=== PATIENT | female | born 1965 | race African-American/Black ===

== ENCOUNTER 2017-02-15 02:07 | Emergency (ER) | payer BC, OTHER ==
[~2017-02-15] VITALS: Ht 162.6 cm; Wt 70.3 kg
--- NOTE | ~2017-02-15 | EKG ---
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 : 1965 Requested By: Leon Wooten Order Number: [id number] MD: Rikki Grimes Measurements Intervals [place] Rate: 56 P: 24 VA: 147 QRS: 10 QRSD: 103 T: 16 QT: 442 QTc: 427 Interpretive Statements Sinus bradycardia Ventricular premature complex Borderline T abnormalities, anterior leads No previous ECG available for comparison Electronically Signed On 02-15-2017 8:34:24 RUBBER HEEL AND SOLE PRESS TENDER by Rikki Grimes [email or web address] <ELECTRONICALLY SIGNED> By: Rikki Grimes MD, [facility] 02/15/17 [id number] Rikki Grimes MD, FACC /EPI
[2017-02-15] MEDS ORDERED: LISINOPRIL10 MG PO (02:16)
[2017-02-15] MEDS ORDERED: AMBIEN 5 MG TABL5 M1 PO (02:16)
[2017-02-15 02:44] LABS: ABSOLUTE NEUTROPHILS 6.7 thou/uL (1.4-8.2); BASOPHILS 0.7 % (0.0-2.0); EOSINOPHILS 0.8 % (0.0-3.0); HEMATOCRIT 32.1 % (37.0-47.0); LYMPHOCYTES 23.9 % (24.0-44.0); MCH 27.8 pg (26.0-34.0); MCHC 34.2 g/dL (28.0-37.0); MCV 81.4 fL (80.0-100.0); MONOCYTES 6.2 % (1.0-8.0); PLATELET COUNT 261 thou/uL (150-400); POLYS 68.4 % (36.0-66.0); RBC 3.94 mil/uL (4.20-5.00); WBC 9.8 thou/uL (4.0-11.0)
[2017-02-15 02:53] LABS: ANION GAP 10 mmol/L (7-16); BUN 11 mg/dL (7-18); CALCIUM 9.9 mg/dL (8.5-10.1); CHLORIDE 102 mmol/L (98-107); CO2 28 mmol/L (21-32); CREATININE 0.6 mg/dL (0.6-1.0); GLUCOSE 122 mg/dL (74-106); POTASSIUM 3.2 mmol/L (3.5-5.1); SODIUM 140 mmol/L (136-145)
[2017-02-15 02:54] LABS: URINE BILIRUBIN NEGATIVE (Negative); URINE BLOOD TRACE (Negative); URINE CLARITY CLEAR; URINE COLOR YELLOW; URINE GLUCOSE-RANDOM* NEGATIVE (Negative); URINE KETONES NEGATIVE (Negative); URINE LEUKOCYTES-REFLEX TRACE (Negative); URINE NITRITE-REFLEX NEGATIVE (Negative); URINE PROTEIN (DIPSTICK) NEGATIVE (Negative); URINE SPECIFIC GRAVITY <= 1.005 (1.005-1.035); URINE UROBILINOGEN 0.2 E.U./dl (0.2-1.0)
[2017-02-15] MEDS ORDERED: VENTOLIN HFA 1818 GM INH (03:00)
[2017-02-15] MEDS ORDERED: PREDNISONE 20 M20 MG PO (03:00)
[2017-02-15] MEDS ORDERED: HYDROCODONE-AP1 EAC6 PO (03:00)
[2017-02-15] MEDS ORDERED: ZOFRAN ODT8 MG PO (03:00)
[2017-02-15 03:04] LABS: ALBUMIN 3.7 g/dL (3.4-5.0); LIPASE 62 U/L (73-393); SGOT 15 U/L (15-37); SGPT 21 U/L (30-65); TOTAL BILIRUBIN 0.5 mg/dL (<0.1-1.0); TOTAL PROTEIN 7.7 g/dL (6.4-8.2); TROPONIN-I < 0.04 ng/mL (<0.06)
[2017-02-15] MEDS ORDERED: CIPROFLOXACIN500 M1 PO (04:47)
[2017-02-15] MEDS ORDERED: FLAGYL500 MG PO (04:47)
== END 2017-02-15 07:11 | disposition home or self-care (01) ==
LOC: ER 02:07
PROVIDERS: Emergency Medicine
DX: K57.92 Diverticulitis of intestine, part unspecified, without perforation or abscess without bleeding (principal); E87.6 Hypokalemia; I10 Essential (primary) hypertension; Z90.710 Acquired absence of both cervix and uterus

== ENCOUNTER 2017-11-18 22:40 | Emergency (ER) | payer BC, OTHER ==
[~2017-11-18] VITALS: Ht 165.1 cm; Wt 67.6 kg
[~2017-11-18 22:40] MED LIST: AMBIEN 5 MG TABL5 M1 PO; CIPROFLOXACIN500 M1 PO; FLAGYL500 MG PO; HYDROCODONE-AP1 EAC6 PO; LISINOPRIL10 MG PO; PREDNISONE 20 M20 MG PO; VENTOLIN HFA 1818 GM INH; ZOFRAN ODT8 MG PO
[2017-11-18 23:43] LABS: ABSOLUTE NEUTROPHILS 2.6 thou/uL (1.4-8.2); BASOPHILS 0.6 % (0.0-2.0); EOSINOPHILS 1.8 % (0.0-3.0); HEMATOCRIT 34.8 % (37.0-47.0); HEMOGLOBIN 11.9 gm/dL (12.0-15.0); LYMPHOCYTES 32.9 % (24.0-44.0); MCHC 34.2 g/dL (28.0-37.0); MCV 84.8 fL (80.0-100.0); MONOCYTES 11.3 % (1.0-8.0); PLATELET COUNT 204 thou/uL (150-400); POLYS 53.4 % (36.0-66.0); RDW 13.1 % (10.5-14.5)
[2017-11-18 23:47] LABS: CALCIUM 9.3 mg/dL (8.5-10.1); CREATININE 0.5 mg/dL (0.6-1.0); POTASSIUM 4.1 mmol/L (3.5-5.1)
[2017-11-18 23:53] LABS: ALBUMIN 3.2 g/dL (3.4-5.0); TOTAL BILIRUBIN 0.4 mg/dL (<0.1-1.0); TOTAL PROTEIN 6.9 g/dL (6.4-8.2)
[2017-11-19] MEDS ORDERED: CIPROFLOXACIN500 M1 PO
[2017-11-19] MEDS ORDERED: FLAGYL500 MG PO
[2017-11-19] MEDS ORDERED: NORCO 5-325 TA1 EACH PO
[2017-11-19 00:36] LABS: URINE BILIRUBIN NEGATIVE (Negative); URINE BLOOD NEGATIVE (Negative); URINE CLARITY CLEAR; URINE COLOR YELLOW; URINE GLUCOSE-RANDOM* NEGATIVE (Negative); URINE KETONES NEGATIVE (Negative); URINE LEUKOCYTES-REFLEX NEGATIVE (Negative); URINE NITRITE-REFLEX NEGATIVE (Negative); URINE PROTEIN (DIPSTICK) NEGATIVE (Negative); URINE UROBILINOGEN 0.2 E.U./dl (0.2-1.0)
[2017-11-19 02:36] VITALS: BP 109/67
== END 2017-11-19 02:31 | disposition home or self-care (01) ==
LOC: ER 22:40
PROVIDERS: Emergency Medicine
DX: K57.92 Diverticulitis of intestine, part unspecified, without perforation or abscess without bleeding (principal); I10 Essential (primary) hypertension; Z90.711 Acquired absence of uterus with remaining cervical stump

== ENCOUNTER 2018-03-09 20:06 | Emergency (ER) | payer BC, OTHER ==
[~2018-03-09] VITALS: Ht 167.6 cm; Wt 71.7 kg
[~2018-03-09 20:06] MED LIST changes: +NORCO 5-325 TA1 EACH PO
[2018-03-09 20:39] LABS: URINE BILIRUBIN NEGATIVE (Negative); URINE BLOOD TRACE (Negative); URINE CLARITY CLEAR; URINE COLOR YELLOW; URINE GLUCOSE-RANDOM* NEGATIVE (Negative); URINE KETONES NEGATIVE (Negative); URINE LEUKOCYTES-REFLEX NEGATIVE (Negative); URINE NITRITE-REFLEX NEGATIVE (Negative); URINE PROTEIN (DIPSTICK) NEGATIVE (Negative); URINE SPECIFIC GRAVITY <= 1.005 (1.005-1.035); URINE UROBILINOGEN 0.2 E.U./dl (0.2-1.0)
[2018-03-09 21:06] LABS: HEMATOCRIT 35.7 % (37.0-47.0); HEMOGLOBIN 12.3 gm/dL (12.0-15.0); MCH 29.9 pg (26.0-34.0); MCHC 34.5 g/dL (28.0-37.0); MCV 86.6 fL (80.0-100.0); RBC 4.12 mil/uL (4.20-5.00); RDW 12.5 % (10.5-14.5); WBC 5.9 thou/uL (4.0-11.0)
[2018-03-09 21:18] LABS: ANION GAP 8 mmol/L (7-16); BUN 14 mg/dL (7-18); CALCIUM 9.2 mg/dL (8.5-10.1); CHLORIDE 102 mmol/L (98-107); CO2 26 mmol/L (21-32); CREATININE 0.7 mg/dL (0.6-1.0); GLUCOSE 100 mg/dL (74-106); POTASSIUM 3.8 mmol/L (3.5-5.1); SODIUM 136 mmol/L (136-145)
[2018-03-09 21:26] LABS: ALBUMIN 3.7 g/dL (3.4-5.0); LIPASE 68 U/L (73-393); SGOT 18 U/L (15-37); SGPT 18 U/L (30-65); TOTAL BILIRUBIN 0.4 mg/dL (<0.1-1.0); TOTAL PROTEIN 7.3 g/dL (6.4-8.2); TROPONIN-I <0.06 ng/mL (<0.06)
[2018-03-09] MEDS ORDERED: NORCO 5-325 TA1 EACH PO (22:07)
[2018-03-09] MEDS ORDERED: MIRALAX17 GM PO (22:07)
[2018-03-09] MEDS ORDERED: CIPROFLOXACIN500 M1 PO (22:07)
[2018-03-09] MEDS ORDERED: FLAGYL500 M1 PO (22:07)
[2018-03-09 22:22] VITALS: BP 141/75
--- NOTE | 2018-03-10 10:06 | EKG ---
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 : 1965 Requested By: Jeanne Key Order Number: [id number] MD: Pedro Pablo Ball Measurements Intervals [place] Rate: 67 P: 43 MN: 145 QRS: 19 QRSD: 79 T: 27 QT: 394 QTc: 413 Interpretive Statements Sinus rhythm Multiple ventricular premature complexes Probable left atrial enlargement Compared to ECG 02/15/2017 02:42:50 Sinus bradycardia no longer present T-wave abnormality no longer present Electronically Signed On 03-10-2018 10:06:11 INTELLIGENCE OFFICER BASIC by Pedro Pablo Ball [email or web address] <ELECTRONICALLY SIGNED> By: Pedro Pablo Ball MD [phone] Pedro Pablo Ball MD /RACHEL
== END 2018-03-09 22:22 | disposition home or self-care (01) ==
LOC: ER 20:06
PROVIDERS: Student in an Organized Health Care Education/Training Program
DX: K57.32 Diverticulitis of large intestine without perforation or abscess without bleeding (principal); R19.7 Diarrhea, unspecified; I10 Essential (primary) hypertension; Z90.710 Acquired absence of both cervix and uterus

== ENCOUNTER 2020-04-15 10:40 | Emergency (ER) | payer BC, OTHER ==
[~2020-04-15] VITALS: Ht 167.6 cm; Wt 79.8 kg
[~2020-04-15 10:40] MED LIST changes: +FLAGYL500 M1 PO; +MIRALAX17 GM PO
[2020-04-15] MEDS ORDERED: PROZAC20 MG PO (10:52)
[2020-04-15 10:57] LABS: ABSOLUTE NEUTROPHILS 1.9 thou/uL (1.4-8.2); BASOPHILS 0.9 % (0.0-2.0); EOSINOPHILS 1.2 % (0.0-3.0); HEMATOCRIT 35.3 % (37.0-47.0); HEMOGLOBIN 11.6 gm/dL (12.0-15.0); LYMPHOCYTES 38.7 % (24.0-44.0); MCH 27.8 pg (26.0-34.0); MCV 84.3 fL (80.0-100.0); PLATELET COUNT 251 thou/uL (150-400); POLYS 48.2 % (36.0-66.0); RBC 4.19 mil/uL (4.20-5.00); RDW 11.9 % (10.5-14.5)
[2020-04-15 11:02] LABS: ANION GAP 13 mmol/L (7-16); BUN 12 mg/dL (7-18); CALCIUM 9.8 mg/dL (8.5-10.1); CHLORIDE 102 mmol/L (98-107); CO2 25 mmol/L (21-32); CREATININE 0.8 mg/dL (0.6-1.0); GLUCOSE 106 mg/dL (74-106); POTASSIUM 3.7 mmol/L (3.5-5.1); SODIUM 140 mmol/L (136-145)
[2020-04-15 11:08] LABS: PROTIME 10.3 Seconds (9.3-11.4)
[2020-04-15 11:12] LABS: SGOT 27 U/L (15-37); SGPT 26 U/L (14-59); TOTAL BILIRUBIN 0.4 mg/dL (0.2-1.0); TOTAL PROTEIN 8.1 g/dL (6.4-8.2); TROPONIN-I <0.06 ng/mL (<0.06)
[2020-04-15 13:34] VITALS: BP 122/84
--- NOTE | 2020-04-16 06:55 | EKG ---
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 <ELECTRONICALLY SIGNED> By: Krzysztof Bolden MD, [facility] 04/16/20 0655 [id number] [id number] Krzysztof Bolden MD, [facility] /EPI
== END 2020-04-15 13:27 | disposition home or self-care (01) ==
LOC: ER 10:40
PROVIDERS: Emergency Medicine
DX: R07.9 Chest pain, unspecified (principal); I10 Essential (primary) hypertension; Z90.710 Acquired absence of both cervix and uterus; Z79.899 Other long term (current) drug therapy; Z20.822 Contact with and (suspected) exposure to COVID-19